=== PATIENT | female | born 1980 | race Caucasian/White ===

== ENCOUNTER 2024-05-29 19:11 | Emergency (ER) | payer BC, SELFPAY ==
--- NOTE | ~2024-05-29 | US_ITS ---
CLINICAL HISTORY: RUQ pain US Abdomen Limited, Right Upper Quadrant COMPARISON: None FINDINGS: Views limited by shadowing bowel gas. No cholelithiasis. No gallbladder wall thickening. No pericholecystic fluid. Negative sonographic Barrientos sign. No bile duct dilation. Common bile duct measures 3 mm in diameter. Echogenic, suboptimally visualized liver, which could be due to hepatic steatosis or hepatocellular disease. IMPRESSION: No acute findings. This document has been electronically signed by: Kris Valdivia MD on 05/29/2024 21:24:08
[2024-05-29 19:25] VITALS: BP 152/106; PULSE 89; RESP 18; TEMP 37.1; O2SAT 98; BMI 26.1
--- NOTE | 2024-05-29 19:25 | ED.GENADULT ---
HPI - General Adult General Chief complaint: Abdominal Pain Stated complaint: sharp abd pain right side Time Seen by Provider: 05/29/24 22:41 Source: patient Mode of arrival: ambulatory Limitations: no limitations History of Present Illness ED Provider: HPI narrative: Patient complaining of pain in the epigastric area soon after eating food earlier today no history of similar pain in the past felt slightly nauseated no vomiting also had pain in the right shoulder had similar pain in the past after eating fried food no workup done in the past at this time patient is almost gone Related Data Allergies Allergy/AdvReac Type Severity Reaction Status Date / Time No Known Allergies Allergy Verified 05/29/24 19:31 Review of Systems Review of Systems: Yes all other systems are reviewed and are negative [facility] Social History Social History Advance Directives: No Advance Directives Information Provided: No Do you have a plan to hurt others: No Plan Physical Exam ED Vital Signs: Vital Signs - 24 hr 05/29/24 19:25 05/29/24 22:48 05/29/24 23:32 Temperature 98.8 F 98.2 F 98.2 F Pulse Rate 89 81 81 Respiratory Rate 18 19 19 Blood Pressure 152/106 H 124/86 124/86 Pulse Oximetry 98 100 100 Oxygen Delivery Method Room Air Room Air Room Air BMI result Body Mass Index 26.1 Appearance: Alert. Oriented X3. No acute distress. Eyes: PERRLA, No Nystagmus ENT: Pharynx normal. Oral Mucosa moist Neck: Normal inspection. Neck supple. CVS: Normal heart rate and rhythm. Pulses normal. Respiratory: No respiratory distress. Equal air entry bilateral, no wheezing/rales/rhonchi Abdomen: Soft and tenderness in epigastric area Barrientos sign negative Bowel sounds are present, no mass palpable, no CVA tenderness Skin: Skin warm and dry. Normal skin color. Normal skin turgor. Extremities: No lower extremity edema. No calf tenderness Neuro: Oriented X 3. No motor deficit. Course Course Course Narrative: RME performed by Marilee Lowry PA-C. Patient is a 43 year old assigned female at presenting to the emergency department with abdominal pain. Patient states that she been having RUQ abdominal pain. Detailed physical exam and review of systems are deferred to the behavioral health clinician. EKG, labs, imaging, and swabs ordered. Patient placed back in the waiting room pending room availability and results. Medical Decision Making Medical Decision Making [facility] Narrative: Patient's epigastric pain ultrasound was done which was negative for gallstones liver functions are normal white source counts are normal unlikely biliary colic with normal labs. Patient advised avoid fried food follow up with GI if pain continues for further workup including HIDA scan Differential Diagnosis Differential Diagnoses: The differential diagnosis associated with the presentation includes Biliary colic/gallstones/gastritis Lab Data [facility] Lab Attestation statement: I reviewed the patient's lab results. 05/29/24 20:01 05/29/24 20:01 Labs: Lab Results 05/29/24 Range/Units 20:01 WBC 7.1 (4.8-10.8) X10*3/uL RBC 4.43 (4.20-5.50) X10*6/uL Hgb 14.3 (12.0-16.0) g/dl Hct 40.5 (37.0-47.0) % MCV 91.4 (80.0-98.0) fL MCH 32.3 (27.0-33.0) pg MCHC 35.3 H (31.0-35.0) g/dl RDW 12.1 (11.0-16.0) % Plt Count 225 (160-400) X10*3/uL MPV 9.7 (9.4-12.3) fL Immature Gran % (Auto) 0.1 (0.0-0.4) % Neut % (Auto) 60.4 (45-73) % Lymph % (Auto) 28.8 (20-40) % Hancock % (Auto) 6.6 (2-11) % Eos % (Auto) 3.0 (0-4) % Baso % (Auto) 1.1 (0-2) % Lymph # (Auto) 2.0 (1.2-4.9) X10*3/uL Hancock # (Auto) 0.5 (0.1-1.2) X10*3/uL Eos # (Auto) 0.2 (0.0-0.4) X10*3/uL Baso # (Auto) 0.1 (0.0-0.2) X10*3/uL Abs Immat Gran (auto) 0.01 (0.00-0.03) X10*3/uL Absolute Neuts (auto) 4.3 (2.0-8.3) x10*3/uL Absolute Nucleated RBC 0.000 (0.0-0.012) X10*3/uL Nucleated RBC % (auto) 0.0 (0.0-0.2) /100WBC PT 11.0 (10.9-12.4) SEC INR 0.9 (0.9-1.1) Sodium 139 (135-145) mmol/L Potassium 3.7 (3.3-5.1) mmol/L Chloride 108 (96-108) mmol/L Carbon Dioxide 23 (22-29) mmol/L Anion Gap 12 (12-20) BUN 19 H (9-16) mg/dL Creatinine 0.89 (0.5-1.4) mg/dL Estim Creat Clear Calc 83.6 Estimated GFR > 60 Random Glucose 101 (60-115) mg/dL Calcium 9.1 (8.4-10.2) mg/dL Magnesium 2.0 (1.6-2.6) mg/dL Total Bilirubin 0.4 (0.0-1.0) mg/dL AST 27 (5-31) U/L ALT 24 (0-31) U/L Alkaline Phosphatase 50 (39-117) U/L Troponin I High Sens < 2.7 (<3.5-17.0) ng/L Total Protein 7.3 (6.5-8.0) g/dL Albumin 4.1 (3.5-5.0) g/dL Lipase 27 (8-78) U/L Influenza Type A (PCR) NEGATIVE (Negative) Influenza Type B (PCR) NEGATIVE (Negative) RSV RNA Qual (PCR) NEGATIVE (Negative) SARS-CoV-2 RNA (RT-PCR) NEGATIVE (Negative) Discharge Plan Discharge Clinical Impression: Gastritis, Abdominal pain Patient Disposition: Home, Self-Care Instructions: Gastritis (ED), Abdominal Pain (ED) Additional Instructions: cause of abdominal pain is not clear your labs are stable and ultrasound of the abdomen negative for gallstones avoid fried and high carbohydrate diet 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
--- NOTE | 2024-05-29 19:27 | ECG_ITS ---
Test Reason : ABD PAIN Blood Pressure : */* mmHG Vent. Rate : 81 BPM Atrial Rate : 81 BPM P-R Int : 136 ms QRS Dur : 80 ms QT Int : 376 ms P-R-T Axes : 44 19 55 degrees QTcB Int : 436 ms Normal sinus rhythm Low voltage QRS Cannot rule out Anterior infarct , age undetermined Abnormal ECG No previous ECGs available Referred By: Marilee Lowry Electronically Signed By: NOAH GRANADOS MD
[2024-05-29 20:08] LABS: MANUAL DIFF FLAG NO
[2024-05-29 20:25] LABS: Basophils Absolute Auto 0.1 X10*3/uL (0.0-0.2); Basophils Percent Auto 1.1 % (0-2); Eosinophils Absolute Auto 0.2 X10*3/uL (0.0-0.4); Hematocrit 40.5 % (37.0-47.0); Hemoglobin 14.3 g/dl (12.0-16.0); Imm Gran Abs Auto 0.01 X10*3/uL (0.00-0.03); Imm Gran Pct Auto 0.1 % (0.0-0.4); Lymphocytes Percent Auto 28.8 % (20-40); Mean Corpuscular HGB Conc 35.3 g/dl (31.0-35.0); Mean Corpuscular Hemoglobin 32.3 pg (27.0-33.0); Mean Corpuscular Volume 91.4 fL (80.0-98.0); Mean Platelet Volume 9.7 fL (9.4-12.3); Monocytes Absolute Auto 0.5 X10*3/uL (0.1-1.2); Monocytes Percent Auto 6.6 % (2-11); Neutrophils Absolute Auto 4.3 x10*3/uL (2.0-8.3); Neutrophils Percent Auto 60.4 % (45-73); Platelet Count 225 X10*3/uL (160-400); Red Blood Count 4.43 X10*6/uL (4.20-5.50); Red Cell Distribution Width 12.1 % (11.0-16.0); White Blood Count 7.1 X10*3/uL (4.8-10.8)
[2024-05-29 20:29] LABS: Alanine Aminotransferase 24 U/L (0-31); Albumin Level 4.1 g/dL (3.5-5.0); Alkaline Phosphatase 50 U/L (39-117); Anion Gap 12 (12-20); Aspartate Amino Transferase 27 U/L (5-31); Bilirubin Total 0.4 mg/dL (0.0-1.0); Blood Urea Nitrogen 19 mg/dL (9-16); Calcium 9.1 mg/dL (8.4-10.2); Carbon Dioxide 23 mmol/L (22-29); Chloride 108 mmol/L (96-108); Creatinine Clr Calc Pharmacy 83.6; Estimated Glomerular Filt Rate > 60; Glucose Random 101 mg/dL (60-115); Lipase 27 U/L (8-78); Potassium 3.7 mmol/L (3.3-5.1); Sodium 139 mmol/L (135-145); Total Protein 7.3 g/dL (6.5-8.0)
[2024-05-29 20:32] LABS: INTERNATIONAL NORM RATIO 0.9 (0.9-1.1)
[2024-05-29 20:36] LABS: Troponin-I High Sensitivity < 2.7 ng/L (<3.5-17.0)
[2024-05-29 20:48] LABS: Influenza A PCR NEGATIVE (Negative); Influenza B PCR NEGATIVE (Negative); Resp Syncy Virus RNA Qual PCR NEGATIVE (Negative); SARS COV2 PCR INHOUSE NEGATIVE (Negative)
[2024-05-29 22:48] VITALS: BP 124/86; PULSE 81; RESP 19; TEMP 36.8; O2SAT 100
[2024-05-29 23:32] VITALS: BP 124/86; PULSE 81; RESP 19; TEMP 36.8; O2SAT 100
== END 2024-05-29 23:32 | disposition home or self-care (01) ==
PROVIDERS: Physician Assistant Medical; Emergency Provider Internal Medicine
DX: K29.70 Gastritis, unspecified, without bleeding (principal); Z03.818 Encounter for observation for suspected exposure to other biological agents ruled out
CPT/HCPCS: 0241U; 76705; 80053; 83690; 83735; 84484; 85025; 85610; 93005; 99283; 99284

== ENCOUNTER → 2024-05-29 19:26 | Outpatient (BNV) | payer BC, SELFPAY | PROVIDERS: Visit Provider Radiology Diagnostic Radiology | DX: R10.11 Right upper quadrant pain (principal) | CPT/HCPCS: 76705 ==

== ENCOUNTER → 2024-05-29 19:27 | Outpatient (BNV) | payer BC, SELFPAY | PROVIDERS: Emergency Provider Internal Medicine; Visit Provider Internal Medicine Cardiovascular Disease | DX: R94.31 Abnormal electrocardiogram [ECG] [EKG] (principal); R10.9 Unspecified abdominal pain | CPT/HCPCS: 93010 ==

== ENCOUNTER 2024-07-02 14:11 | Outpatient (REF) | payer BC, SELFPAY ==
[2024-07-02 16:31] LABS: Blood Urea Nitrogen 14 mg/dL (9-16); Estimated Glomerular Filt Rate > 60
== END 2024-07-02 14:12 | disposition home or self-care (01) ==
LOC: HO.LAB 14:11
PROVIDERS: Visit Provider Surgery
DX: R10.11 Right upper quadrant pain (principal); G89.29 Other chronic pain
CPT/HCPCS: 36415; 82565; 84520

== ENCOUNTER 2024-07-02 14:11 | Outpatient (AMB) | payer BC, SELFPAY ==
--- NOTE | 2024-07-02 14:12 | MHC.OFFVIS ---
Vital Signs 07/02/24 14:21 Height 5 ft 6 in Weight 163 lb BMI 26.3 BP 154/85 H Blood Pressure Location Rt brachial Position Sitting Pulse 85 Intake Visit Reasons: Gallbladder issues Intake Note: Patient referred by pcp Barbi SCHNEIDER for Gallbladder issues. Patient c/o: RUQ pain that spreads to back. Reports pain has subsided since ED visit. Was seen @ [facility] emergency department on 05-29-2024. Despatching And Receiving Clerk Required: No Accompanied by: Self / Same As Patient Allergies No Known Allergies Allergy (Verified 07/02/24 14:18) Medication List - Last Reconciled 07/02/24 by Rony Claire MD biotin 800 mcg PO DAILY multivitamin 1 tab PO DAILY HPI HPI Gallbladder issues: Details: [age] year old female referred for right upper quadrant pain. She apparently went to the ER last 05/29/2024 because of right upper quadrant pain. However, her ultrasound did not reveal any gallbladder disease nor gallstones. She had no leukocytosis. Her LFTs were unremarkable. She says she has a history of right upper quadrant pain periodically for about 2 years now. She said that she is usually happens after meals. However, her episode from last month was ?severe? that is why she ended up in the emergency room. She has no other systemic symptoms like fever, or weight loss. REPLACED BY [facility] Medical History Chronic right upper quadrant pain delivery delivered Social History Alcohol intake: current Alcohol intake frequency: holidays/special occasions only Alcohol type: other Patient Tobacco Use Status: Never used Tobacco Review of Systems Const Denies chills and Denies fever(s) Card Denies chest pain, Denies dyspnea and Denies dyspnea on exertion Resp Denies cough, Denies dyspnea and Denies dyspnea on exertion GI Denies hematochezia and Denies change in bowel habits Denies hematuria Musc Denies back pain and Denies limited range of motion Neuro Denies focal weakness and Denies convulsions Psych Denies depression and Denies mood swings Physical Exam Const General: comfortable and no acute distress Orientation/consciousness: patient oriented x3 Neck Neck: Yes no lymphadenopathy Resp Auscultation: clear to auscultation bilaterally Cardio Rhythm: regular rhythm GI Palpation (GI): Soft to palpation, nontender and no guarding Neuro General: patient oriented x3 Assessment & Plan Assessment & Plan (1) Chronic right upper quadrant pain: Code(s): R10.11 - Right upper quadrant pain; G89.29 - Other chronic pain Category: Medical Plan: She has had this frequent right upper quadrant pain for about 2 years. Ultrasound does not show gallstones or suggestion of a gallbladder disease. Her LFTs were normal I am going to order for a CAT scan of the abdomen pelvis as well as a HIDA scan to check for any other etiology including biliary dyskinesia. I explained this immediate in studies to her I will see her in the office thereafter to review the findings and decide on the next step in her care. She understands the plan well and is comfortable with this Orders: Orders Blood Urea Nitrogen Today G89.29 - Other chronic pain, R10.11 - Right upper quadrant pain Creatinine Today G89.29 - Other chronic pain, R10.11 - Right upper quadrant pain CT abdomen pelvis w IV con Today G89.29 - Other chronic pain, R10.11 - Right upper quadrant pain NM hepatobiliary w pharm Today G89.29 - Other chronic pain, R10.11 - Right upper quadrant pain Coding Level of Care Code New Pt Level 3 (56127) Diagnoses Chronic right upper quadrant pain R10.11; G89.29
[2024-07-02 14:21] VITALS: BP 154/85; PULSE 85; BMI 26.3
== END 2024-07-02 14:39 | disposition home or self-care (01) ==
LOC: HO.HGS 14:12
PROVIDERS: Visit Provider Surgery
DX: R10.11 Right upper quadrant pain (principal); G89.29 Other chronic pain
CPT/HCPCS: 99203

== ENCOUNTER → 2024-08-03 10:32 | Outpatient (REF) | payer BC, SELFPAY | LOC: HO.NUCMED 10:32 | PROVIDERS: Visit Provider Surgery | DX: Z13.89 Encounter for screening for other disorder (principal) ==

== ENCOUNTER → 2024-08-12 10:20 | Outpatient (REF) | payer BC, SELFPAY ==
--- NOTE | ~2024-08-12 | NM_ITS ---
EXAMINATION: NM HEPATOBILIARY WITH PHARM HISTORY: R10.11 - Right upper quadrant pain. TECHNIQUE: An hepatobiliary scan was performed following the intravenous administration of 5 mCi technetium 99m-mebrofenin. Sequential images were obtained over 90 minutes. Subsequently, the patient received 1.48 microgram of IV CCK over 30 minutes and additional imaging was performed. COMPARISON: Correlation is made with an abdominal ultrasound dated 05/29/2024. FINDINGS: There is normal uptake and excretion of the radiopharmaceutical by the liver. Gallbladder activity is noted at 76 minutes. Common bile duct activity is seen at 20 minutes. Small bowel activity is noted at 34 minutes. After the administration of intravenous CCK, the estimated gallbladder ejection fraction is 48%, which is within normal limits (normal 35-80%). NM/NM hepatobiliary w pharm IMPRESSION: Normal hepatobiliary scan with normal gallbladder ejection fraction. Electronically signed by: Rod Mandel MD 08/12/2024 01:24 PM EDT
== END ==
LOC: HO.NUCMED 10:20
PROVIDERS: Visit Provider Surgery
DX: R10.11 Right upper quadrant pain (principal); G89.29 Other chronic pain
CPT/HCPCS: 78227; A9537; J2805

== ENCOUNTER → 2024-08-12 10:22 | Outpatient (BNV) | payer BC, SELFPAY | PROVIDERS: Visit Provider Radiology Diagnostic Radiology | DX: R10.11 Right upper quadrant pain (principal) | CPT/HCPCS: 78227 ==

== ENCOUNTER 2024-08-24 12:36 | Outpatient (REF) | payer BC, SELFPAY ==
--- NOTE | ~2024-08-24 | CT_ITS ---
CLINICAL HISTORY: R10.11 - Right upper quadrant pain CT abdomen and pelvis with contrast Comparison: US/[place] - US ABDOMEN LIMITED - 05/29/24 19:40 EST Findings: The lung bases are clear. The liver, gallbladder, spleen, adrenal glands, pancreas, kidneys, ureters and bladder appear within normal limits. Well-positioned IUD. Uterus and adnexa within normal limits. Mild engorgement of the vasa recta. Scattered gas and fluid throughout nondistended small and large bowel. Normal appendix. No pneumatosis, free air or abscess. No bowel obstruction. Trace free fluid in the cul-de-sac. No acute osseous finding. Impression: There is mild engorgement of the vasa recta and scattered gas and fluid throughout nondistended small and large bowel. Trace free fluid in the cul-de-sac. Findings may reflect mild enteritis. This document has been electronically signed by: Jurgen Abdi MD on 08/25/2024 12:01:33
[2024-08-24] MEDS: iohexoL 350 MG/ML 100 ML INFUS..BTL 85 ML IV (16:04)
== END 2024-08-24 12:37 | disposition home or self-care (01) ==
LOC: HO.CT 12:36
PROVIDERS: Visit Provider Surgery
DX: R10.11 Right upper quadrant pain (principal); G89.29 Other chronic pain
CPT/HCPCS: 74177; Q9967

== ENCOUNTER → 2024-08-24 12:38 | Outpatient (BNV) | payer BC, SELFPAY | PROVIDERS: Visit Provider Radiology Vascular & Interventional Radiology | DX: R10.11 Right upper quadrant pain (principal) | CPT/HCPCS: 74177 ==

== ENCOUNTER 2024-09-09 08:31 | Outpatient (AMB) | payer BC, SELFPAY ==
--- NOTE | 2024-09-09 08:35 | MHC.OFFVIS ---
Vital Signs 09/09/24 08:42 Height 5 ft 6 in Weight 163 lb BMI 26.3 BP 123/89 Blood Pressure Location Rt brachial Position Sitting Pulse 83 Intake Visit Reasons: CT scan results Intake Note: Patient here to discuss abdomen CT scan from 08-24-2024 results. 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 I had ordered this when I saw her in June, because of concerns of gallbladder disease. She had to the ER at that time because of a complaint of right upper quadrant pain However, today, she feels that her pain is actually more on the right lower quadrant near the umbilicus. She says that this is not as frequent nor as severe as it was in June. She also says that frequently, whenever she has oral intake, she would have urgency to have a bowel movement immediately. [facility] Medical History Right lower quadrant pain Chronic right upper quadrant pain delivery delivered Social History Alcohol intake: current Alcohol intake frequency: holidays/special occasions only Alcohol type: other Patient Tobacco Use Status: Never used Tobacco Review of Systems Const Denies chills and Denies fever(s) Card Denies chest pain, Denies dyspnea and Denies dyspnea on exertion Resp Denies cough, Denies dyspnea and Denies dyspnea on exertion GI Denies hematochezia and Denies change in bowel habits Denies hematuria Musc Denies back pain and Denies limited range of motion Neuro Denies focal weakness and Denies convulsions Psych Denies depression and Denies mood swings Physical Exam Vital Signs: Last Vital Signs Pulse 83 09/09/24 08:42 BP 123/89 09/09/24 08:42 BMI result Body Mass Index 26.3 Const General: comfortable and no acute distress Resp Effort & Inspection: normal respiratory effort Cardio Rate: regular rate GI Palpation (GI): Soft to palpation, not firm, nontender and no guarding Assessment & Plan Assessment & Plan (1) Right lower quadrant pain: Code(s): R10.31 - Right lower quadrant pain Category: Medical Plan: I had sent her for a CAT scan and a HIDA scan because of previous complaint of right upper quadrant pain. I have reviewed her CAT scan as well as HIDA scan and this does not suggest gallbladder disease. Furthermore, there is no evidence of any intra-abdominal pathology currently. She also says that her pain now is mostly in the right lower quadrant. This has not a severe nor frequent. I assured her that her imaging studies did not suggest a concerning intra-abdominal pathology. She may have some form of IBS she describes urgency to have a bowel movement immediately after meals I suggested to her to see a senior security architect for this down the line. She says that she has lost her primary care physician and so we will assist her in establishing a relationship with a new primary care physician She is welcome to come back to the office down the line to be re-evaluated. She is comfortable with the plan above. Coding Level of Care Code Est Pt Level 3 (02892) Diagnoses Right lower quadrant pain R10.31
[2024-09-09 08:42] VITALS: BP 123/89; PULSE 83; BMI 26.3
== END 2024-09-09 08:57 | disposition home or self-care (01) ==
LOC: HO.HGS 08:32
PROVIDERS: Visit Provider Surgery
DX: R10.31 Right lower quadrant pain (principal)
CPT/HCPCS: 99213

== ENCOUNTER → 2024-09-09 08:31 | Outpatient (BNVA) | payer BC, SELFPAY | PROVIDERS: Visit Provider Surgery ==